=== PATIENT | female | born 1995 | race Caucasian/White ===

== ENCOUNTER 2019-01-31 07:11 | Emergency (ER) | payer OTHER, SELFPAY ==
[2019-01-31 07:12] VITALS: BP 127/81; PULSE 97; RESP 16; TEMP 36.9; O2SAT 98; BMI 30.9
[2019-01-31 07:17] VITALS: BP 127/81; PULSE 97; RESP 16; TEMP 36.9; O2SAT 98
--- NOTE | 2019-01-31 07:26 | RAD_ITS ---
STUDY: X-RAY - LEFT HAND REASON FOR EXAM: Female, 23 years old. History of dog bite in the region of the stomach. TECHNIQUE: 3 view(s) of the hand. COMPARISON: None. FINDINGS: Normal radiocarpal articulation. Normal distal radioulnar joint. Normal visualized carpal bones. Normal carpal articulations Normal carpometacarpal articulation of the thumb. Normal second through fifth carpometacarpal joints. Normal metacarpi. Normal metacarpophalangeal joint of the thumb. Normal interphalangeal joint of the thumb. Normal proximal and distal phalanges of the thumb. Normal metacarpophalangeal joints of the second through fifth fingers. Normal proximal and distal interphalangeal joints of the second through fifth fingers. Normal phalanges of the second through fifth fingers. The soft tissue structures are unremarkable. RAD/Hand Min 3 Views IMPRESSION: Normal x-ray examination of the hand. Electronically Signed: Conrad Warner, at 8:21 EST , Service support ,
[2019-01-31] MEDS: Acetaminophen 500 MG Tablet 1000 MG PO (07:34)
[2019-01-31] MEDS: Ibuprofen 600 MG Tablet PO (07:34)
--- NOTE | 2019-01-31 07:40 | ED.DCSUM_ITS ---
History of Present Illness Chief Complaint: Bite Informant: Patient Occurred: Yesterday Mechanism/Context: - - bite Onset: Yesterday Context: Sudden Onset Timing: Continuous Quality of Pain: Aching, Throbbing Narrative: Patient is a 23-year-old female. She is presenting with a cat bite to her left thumb. She is right-hand dominant. She states she was trying to bring her cat inside and does not like to be held. A bit her twice on the thumb. Since then she had pain and swelling of her thumb. Not taking any for pain prior to arrival. She denies any fever. She denies any other complaints or injuries at this time. Past Medical History - Allergies and Home Meds Allergies/Adverse Reactions: Allergies No Known Allergies Allergy (Verified 01/31/19 07:12) Primary Care Physician: NOT,DEFINED [NON-STAFF] - Smoking Status: Never smoker Review of Systems General: Denies: Fever, Sweats Eyes: Denies: Visual changes - bilaterally, Diplopia ENT: Denies: Rhinorrhea, Sore throat Cardiovascular: Denies: Chest pain, Palpitations Respiratory: Denies: Dyspnea, Cough, Dyspnea on exertion Gastrointestinal: Denies: Abdominal pain, Nausea, Vomiting, Diarrhea Musculoskeletal: Reports: Extremity Pain - left thumb . Denies: Back pain Skin: Reports: Wounds - left thumb . Denies: Rash Neurological: Denies: Headache, Weakness, Numbness Physical Exam Vital Signs/Narrative: Vital Signs Temp Pulse Resp BP Pulse Ox 01/31/19 07:17 98.5 F 97 16 127/81 H 98 01/31/19 07:12 98.5 F 97 16 127/81 H 98 Inital Vital Signs reviewed: Yes Left Finger: - - Edema and mild erythema of the left thumb, distal aspects with multiple puncture wounds on the volar and dorsal aspects consistent with a cat bite. No associated subungual hematoma. The fat pad is soft. There is normal range of motion. General: Well nourished, Well developed Head: Normocephalic, Atraumatic Eyes: Perrl, EOMI ENT: No Trauma, Moist Mucous Membranes Neck: Nontender, Full ROM Cardiovascular: Regular rate, Regular rhythm, No murmurs Respiratory: No distress, Chest nontender Back: Nontender Skin: - - Scattered puncture wounds on left distal thumb consistent with a cat bite. No active bleeding. Associated erythema. No exudate present. Neurological: Alert, Oriented x3, Cranial nerves II-XII grossly intact, Normal Strength, Normal Sensation Psychological: Normal affect, Tearful Diagnostic/Tx/Re-eval Clinical Impression(s) from Imaging Studies Hand X-Ray 01/31/19 07:26 IMPRESSION: Normal x-ray examination of the hand. Electronically Signed: Conrad Warner, at 8:21 EST , Service support , Laboratory Data 01/31/19 07:45 Urine Test Negative - Medical Decision Making Patient is evaluated for cat bite to her left thumb. Occurred last night, about 10 hours ago. It does not look infected however does appear inflamed. She started on Augmentin. X-ray obtained does not show any retained foreign body or free air. She is able to move the joint and I do not suspect an injury intra- articularly. Discussed with orthopedics on-call to arrange follow-up because of the high risk of infection. First dose of antibiotics is given to the emergency room. Patient is given Tylenol and Motrin for pain control. Patient is counseled on signs and symptoms requiring return to the emergency room. Patient verbalizes agreement and understand this plan. Patient discharged home in stable and improved condition. ED Disposition - Plan for ED Patient: Disposition: Home or Assisted Living Diagnosis: Cat bite of left thumb Instructions: Cat Bite Prescriptions: Amox/Clavulanate Tablet [Augmentin Tablet] 875 mg PO Q12H #20 tab Prescription Printed Ibuprofen [Motrin] 600 mg PO Q6H PRN PRN #20 tab PRN Reason: Pain Or Fever Prescription Printed Referrals: Prasanth Méndez DO [STAFF PHYSICIAN] - Zeke Alas MD [NON-STAFF] - Additional Instructions: Please follow-up with Dr. Méndez, orthopedics, later in the week for a wound check. Take all the antibiotics. Continue to ice and elevate your thumb for pain. Return if you have worsening symptoms or start developing signs of infection or fever. You have also been referred to a primary care doctor for follow-up and establish care.
[2019-01-31 08:05] LABS: Internal QC Validated? YES +Cl - CLEAR BKGD; Pregnancy, Urine Negative Negative
[2019-01-31 08:17] VITALS: BP 127/81; PULSE 97; RESP 16; TEMP 36.9; O2SAT 98
[2019-01-31 09:00] VITALS: BP 127/81; PULSE 97; RESP 16; TEMP 36.9; O2SAT 98
[2019-01-31 09:01] VITALS: PULSE 76; RESP 18; O2SAT 99
[2019-01-31] MEDS: Amox/Clavulanate 875 MG Tablet PO (09:07)
== END 2019-01-31 09:13 | disposition home or self-care (01) ==
PROVIDERS: Emergency Provider Emergency Medicine
DX: S61.052A Open bite of left thumb without damage to nail, initial encounter (principal); W55.01XA Bitten by cat, initial encounter; Y93.89 Activity, other specified; Y92.009 Unspecified place in unspecified non-institutional (private) residence as the place of occurrence of the external cause; Y99.8 Other external cause status
CPT/HCPCS: 73130; 81025; 99284

== ENCOUNTER 2019-04-27 12:11 | Emergency (ER) | payer OTHER, SELFPAY ==
[2019-04-27] VITALS (7 sets, daily range): BP systolic 118–141; BP diastolic 65–74; PULSE 70–109; RESP 16–18; TEMP 36.8–37.1; O2SAT 99–100; BMI 28.9
[2019-04-27] MEDS: 0.9% Normal Saline 1,000 ML 999 ML IV ×2 (13:45→14:46)
--- NOTE | 2019-04-27 14:52 | ED.VIS.GEN ---
History of Present Illness Chief Complaint: Nausea/Vomiting/Diarrhea Informant: Patient Narrative: Patient states that on Wednesday morning she woke feeling very poorly. She was diagnosed later in the day as having influenza A. She is given Tamiflu and by later that night after her first dose she was vomiting. She states she has had quite a difficult time keeping any medication or fluids down. She states that she feels dehydrated that her tongue is dry her urine is less and dark. Small amount of diarrhea has occurred. She felt that her breathing was getting worse seems to be slightly better this afternoon. Past Medical History - Allergies and Home Meds Allergies/Adverse Reactions: Allergies No Known Allergies Allergy (Verified 01/31/19 07:12) Primary Care Physician: Care Physician,No Primary [Primary Care Provider] - Smoking Status: Never smoker Review of Systems General: Reports: Chills, Fever, Malaise. Denies: Sweats Eyes: Denies: Visual changes - bilaterally, Diplopia ENT: Reports: Rhinorrhea. Denies: Sore throat Cardiovascular: Denies: Chest pain, Palpitations Respiratory: Reports: Cough. Denies: Dyspnea, Dyspnea on exertion Gastrointestinal: Reports: Nausea, Vomiting, Diarrhea. Denies: Abdominal pain, Melena, Hematochezia Genitourinary: Denies: Dysuria, Hematuria, Frequency Musculoskeletal: Denies: Back pain, Extremity Pain Skin: Denies: Rash, Wounds Neurological: Denies: Headache, Weakness, Numbness Psych: Denies: Depression, Anxiety, Suicidal thoughts, Suicidal ideations Endocrine: Denies: Polyuria, Polydipsia, Heat intolerance, Cold intolerance Hematologic: Denies: Easy bruising, Easy bleeding, Lymphadenopathy Allergy: Denies: Uticaria, Swelling of the mouth, Swelling of the tongue Physical Exam Vital Signs/Narrative: Vital Signs Temp Pulse Resp BP Pulse Ox 04/27/19 14:36 98.3 F 83 16 118/71 100 04/27/19 13:33 98.3 F 70 18 126/65 H 100 04/27/19 13:32 70 18 126/65 H 100 04/27/19 12:12 98.3 F 109 H 17 141/74 H 99 Inital Vital Signs reviewed: Yes General: Well nourished, Well developed, No Acute Distress Head: Normocephalic, Atraumatic Eyes: Perrl, EOMI ENT: No rhinorrhea, Dry mucous membranes Neck: Supple, Nontender Cardiovascular: Regular rate, Regular rhythm, No murmurs Respiratory: No distress, CTA bilaterally, Chest nontender Abdomen: Soft, Nontender, Nondistended, Normal bowel sounds Back: Nontender, Normal Inspection Extremities: Nontender, No edema Skin: Normal color, No rash Neurological: Alert, Oriented x3, Cranial nerves II-XII grossly intact, Normal Strength, Normal Sensation Psychological: Normal affect, Normal Mood Diagnostic/Tx/Re-eval - Medical Decision Making Patient received 2 L of IV fluids. Her vital signs are normal. Lung sounds are clear and equal. I would advise to discontinue Tamiflu as she is otherwise a healthy individual with no significant risk factors. The patient will be given a prescription for Zofran return if worsening or concerns. ED Disposition - Plan for ED Patient: Disposition: Home or Assisted Living Diagnosis: Influenza A, Vomiting, Dehydration Instructions: DEHYDRATION (6y-Adult), INFLUENZA (Adult) Prescriptions: Ondansetron [Zofran Odt] 4 mg PO Q6H PRN PRN #14 tab PRN Reason: Nausea Prescription Printed Referrals: Care Physician,No Primary [Primary Care Provider] -
--- NOTE | 2019-04-27 15:22 | ED.RN ---
SEPSIS SCREEN STOPPED PT'S VITAL SIGNS IMPROVED AND NO S/S SEPSIS/INFECTION.
== END 2019-04-27 15:23 | disposition home or self-care (01) ==
PROVIDERS: Emergency Provider Emergency Medicine
DX: E86.0 Dehydration (principal); J09.X3 Influenza due to identified novel influenza A virus with gastrointestinal manifestations; R11.2 Nausea with vomiting, unspecified
CPT/HCPCS: 96360; 96361; 99283; J7030; A4216

== ENCOUNTER 2020-05-28 13:45 | Inpatient (IN) | payer OTHER, SELFPAY ==
[2019-04-27 12:12] VITALS: BMI 28.9
[2020-05-28] VITALS (21 sets, daily range): BP systolic 121–155; BP diastolic 65–100; PULSE 76–106; TEMP 36.5–37.2; O2SAT 96–97; BMI 44.1
[2020-05-28 12:57] LABS: Hemoglobin 12.6 g/dL (12.0-15.0); Mean Corp Hgb Conc 32.3 g/dL (32-36); Mean Corpuscular Hgb 25.9 pg (27.0-32.0); Mean Corpuscular Volume 80.1 fL (81-99); Mean Platelet Vol. 11.6 fl (6.2-12.0); Platelet Count 220 K/mm3 (150-450); RBC Distribution Width CV 15.7 % (11.6-14.6); RBC Distribution Width SD 44.1 fl (35.1-43.9); Red Blood Count 4.87 M/mm3 (4.2-5.4)
[2020-05-28 13:09] LABS: AST(SGOT) 14 U/L (15-37); Alanine Aminotransfer ALT/SGPT 12 U/L (13-56); Creatinine, Serum 0.62 mg/dL (0.55-1.02); EST Glomerular Filtration Rate 127 mL/min (>60); Est Glom Filt Rate - Afr Amer 154 mL/min (>60); Estimated Creatinine Clearance 116.74 ml/min; Uric Acid 4.5 mg/dL (2.6-6.0)
[2020-05-28 13:12] LABS: Protein:Creat Ratio 12918 mg/g CRE (0-200)
[2020-05-28] MEDS: Lactated Ringers 1,000 ML 50 ML IV (14:20)
[2020-05-28] MEDS: miSOPROStol 25 MCG TABLET VAGINAL ×2 (16:04→20:11)
--- NOTE | 2020-05-28 17:20 | PCM.HP.OB ---
History Date of Admission: 05/28/20 Final KIANA: 06/17/20 Gestational age: 37 Weeks and 1 Days History of this : This is a 24 year-old, G [], P [], at 37 weeks gestational age. Allergies No Known Allergies Allergy (Verified 01/31/19 07:12) Home Medications: Home Medications Ondansetron [Zofran Odt] 4 mg PO Q6H PRN PRN #14 tab 04/27/19 Smoking Status: Former smoker Substance Use Type: Marijuana Number of Fetus(es): 1 NST - FHR Rate Baby A Baseline: 125 Variability:: Moderate Accelerations:: 15 x 15 Decelerations:: None FHR Category:: Category I Uterine Activity:: Quiet History Past Pregnancies: Past Pregnancies Delivery Date Name GA/ Weeks Outcome Route Wt Infant Sex Labor Length Anesthesia Delivery Location Provider FOB Labs: See [facility] H[facility]P Physical Exam Vitals: Vital Signs Temp Pulse BP 97.9 F 93 141/85 H 05/28/20 15:22 05/28/20 16:21 05/28/20 16:21 General: Alert, Oriented x3 Abdomen: Soft, Non Tender, Gravid Neurological: Cranial nerves II-XII grossly intact [employer] RAILROAD: Normal external genitalia Estimated gestational size: Appropriate for gestational size Presentation: Cephalic Cervix Dilation (cm): 0 Station: -3 Effacement (%): 50 Assessment/Plan This is a 24 year-old, , at 37&1 weeks gestational age. Admit to L&D Preeclampsia - BP's mildly elevated and elevated urine protein. Other labs normal. Induction - vaginal cytotec GBS - negative COVID pending Pain - epidural as desired EFW - less than 4500g, patient with adequate pelvis Routine care
[2020-05-28 20:50] LABS: Amphetamine Urine VISTA NEGATIVE (<1000 ng/mL); Barbiturate Urine VISTA NEGATIVE (< 200 ng/mL); Benzodiazepine Urine VISTA NEGATIVE (< 200 ng/mL); Cocaine Urine VISTA NEGATIVE (< 300 ng/mL); Ecstacy Urine VISTA NEGATIVE (< 500 ng/mL); Methadone Urine VISTA NEGATIVE (< 300 ng/mL); PCP Urine VISTA NEGATIVE (< 25 ng/mL); THC Urine VISTA NEGATIVE (< 50 ng/mL); Vista UDS pH Range 7
[2020-05-29] VITALS (52 sets, daily range): BP systolic 105–149; BP diastolic 61–101; PULSE 76–111; RESP 13–18; TEMP 36.4–37.7; O2SAT 91–99
[2020-05-29] MEDS: miSOPROStol 25 MCG TABLET VAGINAL (00:14)
[2020-05-29] MEDS: 0.9% Normal Saline Single 100 ML IV.SOLN. INTRA-UTER (03:03)
--- NOTE | 2020-05-29 03:10 | PCM.PN.BLA ---
Progress Note S: Patient denies complaints O: Cvx - /-3 fhts - 130 with mod variability, accels tocos - Irregular A&P: Intracervical cervantes placed Start pitocin after cytotec time complete PreE - BP's normal to mildly elevated STROKE Vital Signs/Narrative: Vital Signs Temp Pulse BP Pulse Ox 05/29/20 02:07 76 133/76 H 96 05/29/20 02:06 97.9 F 05/29/20 01:13 97.7 F L 77 117/87 H 96 05/29/20 00:20 98.1 F 80 139/68 H 96 05/28/20 23:34 98.1 F 86 122/68 H 97
[2020-05-29] MEDS: Oxytocin 30 units/NS 500 ml 30 UNITS/500 ML IV.SOLN IV (05:42)
[2020-05-29] MEDS: Lactated Ringers 1,000 ML 50 ML IV (07:45)
[2020-05-29] MEDS: Lactated Ringers 500 ML 999 ML IV ×2 (07:58→13:10)
[2020-05-29] MEDS: fentaNYL-bupivacaine (epidural) 100 ML BAG EPIDURAL (08:38)
--- NOTE | 2020-05-29 11:59 | PCM.PN.BLA ---
Progress Note Cvx 4/60/-2, head well applied. Epidural for pain control. AROM performed for clear fluid. Category 1 tracing. STROKE Vital Signs/Narrative: Vital Signs Temp Pulse BP Pulse Ox 05/29/20 11:50 98.1 F 90 116/71 05/29/20 10:52 81 116/61 05/29/20 09:56 92 120/69 05/29/20 09:21 93 122/74 H 05/29/20 09:00 101 H 105/67 05/29/20 08:57 104 H 98 05/29/20 08:55 105 H 108/66 05/29/20 08:52 98.2 F 100 98 05/29/20 08:50 96 110/63 05/29/20 08:47 97 98 05/29/20 08:44 92 127/64 H 05/29/20 08:42 96 97 05/29/20 08:40 98.6 F 94 127/68 H 05/29/20 08:37 87 97 05/29/20 08:34 94 143/90 H 05/29/20 08:32 97 98 05/29/20 08:28 103 H 140/99 H 05/29/20 08:27 103 H 98 05/29/20 08:22 102 H 97 05/29/20 08:10 90 146/80 H
[2020-05-29] MEDS: Sodium Citrate/Citric Acid 30 ML UDC PO (14:32)
[2020-05-29] MEDS: Cefazolin 2 GM in 0.9% Normal Saline 100 ML IV (14:33)
--- NOTE | 2020-05-29 14:33 | PCM.PN.BLA ---
Progress Note Called for category 2 tracing. FHT with minimal variability and recurrent late decelerations with pit gtt. Resuscitative measures started per RN and variability now moderate with pitocin off. Given recurrent late decelerations with pitocin and regular ctx's, and with patient being remote from delivery, a section was discussed. Cvx 4.5/60/-2. Discussed r/b/a to a section and consent obtained. The patient desires to proceed with a section. STROKE Vital Signs/Narrative: Vital Signs Temp Pulse BP Pulse Ox 05/29/20 13:01 88 99 05/29/20 12:56 86 99 05/29/20 12:54 88 123/80 H 05/29/20 11:50 98.1 F 90 116/71 05/29/20 10:52 81 116/61
--- NOTE | 2020-05-29 16:02 | PCM.OPRPT ---
Problem List (1) 37 weeks gestation of Status: Acute (2) Preeclampsia Status: Acute (3) Primiparous Status: Acute (4) intolerance to labor, delivered, current hospitalization Status: Acute (5) Delivery by section Status: Acute (6) Nuchal cord Status: Acute Report of Operation Date of Procedure: 05/29/20 Pre-Operative Diagnosis: 37 week gestation, preeclampsia without severe features, primiparous patient, intolerance to labor Post-Operative Diagnosis: As above Surgery/Procedure Performed:: PLTCS via pfannenstiel incision Description of Surgical Findings:: Indications: Patient was induced at 37 weeks gestation for preeclampsia without severe features. She progressed to 4.5 cm dilated. At that time the heart rate tracing showed minimal variability with late decelerations noted. Baby was palpated to be large for gestational age. The baby was not engaged in the pelvis. The patient was removed from delivery. Given this and intolerance to labor a section was recommended. VMI that was 8 plus lbs. Nuchal cord x 1. Clear fluid. Normal appearing placenta. Normal appearing uterus, bilateral tubes, bilateral ovaries. digital research analyst: Keith Salomon assisted with the entire surgery. He assisted with prepping and draping the patient, delivery of the baby, and closure. Type of Anesthesia:: Epidural Special Medications: None Specimen's removed: Placenta Drains: Cottrell Estimated Blood Loss (mL): 400 Fluids Replaced: 1000 Description of Procedure: Patient was taken to the operating room where epidural anesthesia was found to be adequate. She was prepped and draped in the dorsal position with a leftward tilt. A Pfannenstiel skin incision was made with a scalpel and this was carried down to the underlying layer of fascia. The fascia was incised in the midline. The fascia was extended laterally using Jo scissors. The fascia was dissected off the rectus muscles using a combination of sharp and blunt dissection. The rectus muscles were in the midline. The peritoneum was entered bluntly with good visualization visualization of the bladder. The incision was extended bluntly. A low transverse incision was made on the uterus. The head of the infant was brought in a flexed position to the hysterotomy. The head was delivered followed by the shoulders and body of the infant without any force or delay. A viable male infant was delivered atraumatically. The cord was clamped and cut after a slight delay. The was handed off to nursery staff. The placenta was removed with manual extraction. Uterus was exteriorized. The uterus was cleared of all clot and debris. Uterus was closed in a running locked fashion with Vicryl. Several additional [id number] sutures were placed for hemostasis. Hysterotomy was hemostatic. A small subserosal uterine hematoma was noted at the site of the hysterotomy, and this was stable throughout the case. The hematoma was about 3 x 1 cm in size. The uterus was placed back into the abdomen. The hysterotomy was again noted to be hemostatic and the hematoma was stable in size. The peritoneum was closed with Vicryl in a running fashion. The fascia was closed with Vicryl in a running fashion. The subcutaneous space was irrigated and made hemostatic with Bovie cautery. Subcutaneous space was reapproximated with Vicryl. Skin was closed with Monocryl in subcuticular fashion. Steri-Strips and dressing were placed. Instrument, sponge, needle counts were correct. The patient was taken recovery room in stable condition. Grafts/Implants Used: None - Complications None - Admit VTE Documentation VTE Present on Admission: No VTE Mechan Device Prophylaxis: [facility] VTE Pharm Prophylaxis ordered?: Yes Delivery Classification: NICANOR Type of Anesthesia:: Epidural Indications for : - - intolerance to labor Amniotic Fluid Description: Clear Drain: Cottrell to straight drain Cord Entanglement: Around neck x 1, loose Cord Vessel Description: 3 Vessels Gender: Male (1 minute): 9 (5 minute): 9 Delayed cord clamping: Yes Antibiotic Given: Ancef 2 grams IV x1, Zithromax 500 mg/5 mL X1 Pt instructed on risks of surgery: Bleeding, Infection, Injury to surrounding structure(s) including bowel and bladder Complications: None
[2020-05-29] MEDS: Ketorolac 30 MG/ML Syringe IV ×2 (16:23→22:21)
[2020-05-29] MEDS: Oxytocin 30 units/NS 500 ml 30 UNITS/500 ML IV.SOLN 167 UNITS IV (16:40)
[2020-05-29] MEDS: Carboprost Tromethamine 250 MCG/ML Ampul IM ×2 (17:13→18:15)
[2020-05-29] MEDS: Lactated Ringers 1,000 ML 100 ML IV (17:48)
[2020-05-29] MEDS: Oxytocin 30 units/NS 500 ml 30 UNITS/500 ML IV.SOLN 500 UNITS IV (18:04)
[2020-05-29] MEDS: miSOPROStol 200 MCG Tablet 1000 MCG RC (18:04)
[2020-05-29 18:19] LABS: Hematocrit 35.4 % (37-47); Hemoglobin 11.4 g/dL (12.0-15.0); Mean Corp Hgb Conc 32.2 g/dL (32-36); Mean Corpuscular Hgb 25.6 pg (27.0-32.0); Mean Corpuscular Volume 79.4 fL (81-99); Mean Platelet Vol. 11.2 fl (6.2-12.0); Platelet Count 201 K/mm3 (150-450); RBC Distribution Width CV 15.8 % (11.6-14.6); RBC Distribution Width SD 43.9 fl (35.1-43.9); Red Blood Count 4.46 M/mm3 (4.2-5.4); White Blood Count 17.4 K/mm3 (4.4-11.0)
[2020-05-29] MEDS: Acetaminophen 500 MG Tablet 1000 MG PO (18:23)
--- NOTE | 2020-05-29 18:51 | PCM.PN.BLA ---
Progress Note Called to evaluate patient's bleeding. At bedside. Patient appears pale. She denies any symptoms of anemia. Uterus is boggy. Uterus was explored x2 and cleared of clot. Total EBL with hemorrhage and about 1300 cc. Will bolus the Pitocin. 2 doses of Hemabate given. Rectal Cytotec placed. BP elevated so no Methergine given. CBC drawn. Will reevaluate bleeding. STROKE Vital Signs/Narrative: Vital Signs Temp Pulse Resp BP Pulse Ox 05/29/20 18:09 95 16 94 05/29/20 17:52 97.7 F L 83 17 132/78 H 94 05/29/20 17:41 98.6 F 85 16 146/83 H 94 05/29/20 17:25 98.4 F 86 16 134/88 H 96 05/29/20 17:10 97.9 F 88 18 135/79 H 94 05/29/20 16:55 97.9 F 111 H 17 143/92 H 95 05/29/20 16:40 98.0 F 83 14 146/81 H 94 05/29/20 16:25 97.9 F 89 13 131/87 H 95 05/29/20 16:09 97.8 F 90 15 133/91 H 94 05/29/20 15:55 97.9 F 89 16 125/86 H 95
--- NOTE | 2020-05-29 18:58 | NURSING ---
Addendum entered by Susanne Palma 05/29/20 19:45: 1000 mcg of cytotec Original Note: Called placed to Dr. Kumari at 1740 to come to unit to assess patient by special services director. Dr. Kumari in room 1755. Total EBL 1010ml, including 400ml from surgery. Fundus firm with massage, large clots expelled. Patient vitals stable. Physician manually removed additional 280 ml of clots from uterus. Ordered 100 mcg cytotec rectally and pitocin at 500 ml/hr. Juliane in room to assist. Patient continuing to trickle after cytotec. Robin special services director in room. Physician ordered 250mcg hemabate IM Fundus firm at umblicius with small bleeding after administration. Physician states to continue to monitor and update physician. Physician to stay on unit at this time. This RN assessed bleeding at 1840 for 110ml out, total of 1400 (including surgery). Notified physician, stated to continue to monitor and she will be in to reassess patient throughout evening. (See MAR for all medication times)
[2020-05-29] MEDS: 0.9% Saline Lock 10 ML Syringe IV (22:21)
[2020-05-30] VITALS (13 sets, daily range): BP systolic 112–125; BP diastolic 64–76; PULSE 78–109; RESP 14–18; TEMP 36.5–36.6; O2SAT 95–98
[2020-05-30] MEDS: Acetaminophen 500 MG Tablet 1000 MG PO ×4 (00:24→18:55)
[2020-05-30] MEDS: 0.9% Saline Lock 10 ML Syringe IV ×2 (03:13→04:30)
[2020-05-30] MEDS: Enoxaparin 40 MG/0.4 ML Syringe SC (04:30)
[2020-05-30] MEDS: Ketorolac 30 MG/ML Syringe IV ×2 (04:30→11:02)
[2020-05-30 05:03] LABS: Hematocrit 29.6 % (37-47); Hemoglobin 9.4 g/dL (12.0-15.0); Mean Corp Hgb Conc 31.8 g/dL (32-36); Mean Corpuscular Hgb 25.8 pg (27.0-32.0); Mean Corpuscular Volume 81.1 fL (81-99); Mean Platelet Vol. 11.3 fl (6.2-12.0); Platelet Count 212 K/mm3 (150-450); RBC Distribution Width CV 15.9 % (11.6-14.6); RBC Distribution Width SD 45.9 fl (35.1-43.9); Red Blood Count 3.65 M/mm3 (4.2-5.4); White Blood Count 18.8 K/mm3 (4.4-11.0)
[2020-05-30 05:20] LABS: ALB/GLOB Ratio 0.6 RATIO (0.9-2.4); AST(SGOT) 18 U/L (15-37); Alanine Aminotransfer ALT/SGPT 12 U/L (13-56); Albumin, Serum 1.8 g/dL (3.2-5.0); Alkaline Phosphatase 174 U/L (45-117); Anion Gap 5 (5-15); BUN 12 mg/dL (7-18); BUN/Creat Ratio 19.4 RATIO (10-20); Calcium,Total 8.2 mg/dL (8.5-10.1); Chloride 102 mmol/L (98-107); Creatinine, Serum 0.62 mg/dL (0.55-1.02); EST Glomerular Filtration Rate 126 mL/min (>60); Est Glom Filt Rate - Afr Amer 152 mL/min (>60); Estimated Creatinine Clearance 116.74 ml/min; Globulin 3.2 g/dL (2.2-4.2); Glucose 104 mg/dL (74-106); Potassium 4.4 mmol/L (3.5-5.1); Sodium Level 133 mmol/L (136-145)
--- NOTE | 2020-05-30 08:33 | PN.OBGYN_ITS ---
Patient Problems: Active and Suspected Problems (Last Updated 05/28/20 @ 17:[address] Carlos Enrique Martinez MD) 37 weeks gestation of (Acute) Preeclampsia (Acute) Primiparous (Acute) intolerance to labor, delivered, current hospitalization (Acute) Delivery by section (Acute) Nuchal cord (Acute) Subjective: Patient seen at bedside. Currently . Feeling tired and sore. Denies any headache, vision changes, sob, cp or dizziness. Pain controlled at this time. Objective: BP have been within normal ranges Dressing dry and intact HGB - admission was 12.6, today 9.4 - Physical Exam Vitals/I&O's: Vital Signs Temp Pulse Resp BP Pulse Ox 98 F 94 16 122/71 H 96 05/30/20 04:36 05/30/20 06:30 05/30/20 06:30 05/30/20 04:36 05/30/20 06:30 Oxygen Delivery Method Room Air Weight: 249 lb 9.012 oz Body Mass Index (BMI) 44.1 Intake and Output for Last 24 Hours 05/28/20 05/29/20 05/30/20 23:59 23:59 23:59 Intake Total 4543.77 / 4543.77 941.67 / 941.67 Output Total 3000 / 3000 1000 / 1000 Balance 1543.77 / 1543.77 -58.33 / -58.33 General: Alert HEENT: Atraumatic Oral: Moist Mucosa Neck: Supple Lungs: Clear to auscultation, Normal air movement Cardiovascular: Regular rate Abdomen: Soft, Non Tender Extremities: Capillary Refill Less than 3 Seconds, No Calf Tenderness, Edema Musculoskeletal: No Tenderness to Palpation of Joints or Extremities Neurological: Cranial nerves II-XII grossly intact Psych/Mental Status: Normal Affect, Appropriate Microbiology Past 72 Hours 05/28/20 14:35 Mucosa - Nose SARS-CoV-2 Antigen (Rapid) - Final Laboratory Results 05/29/20 18:05: WBC 17.4 H, RBC 4.46, Hgb 11.4 L, Hct 35.4 L, MCV 79.4 L, MCH 25.6 L, MCHC 32.2, RDW Std Deviation 43.9, RDW Coeff of Skyler 15.8 H, Plt Count 201, MPV 11.2 05/30/20 04:40: WBC 18.8 H, RBC 3.65 L, Hgb 9.4 L, Hct 29.6 L, MCV 81.1, MCH 25.8 L, MCHC 31.8 L, RDW Std Deviation 45.9 H, RDW Coeff of Skyler 15.9 H, Plt Count 212, MPV 11.3 05/30/20 04:40: Sodium 133 L, Potassium 4.4, Chloride 102, Carbon Dioxide 26.0, Anion Gap 5, BUN 12, Creatinine 0.62, Estim Creat Clear Calc 116.74, Est GFR (MDRD) Af Amer 152, Est GFR (MDRD) Non-Af 126, BUN/Creatinine Ratio 19.4, G lucose 104, Calcium 8.2 L, Total Bilirubin 0.20, AST 18, ALT 12 L, Alkaline Phosphatase 174 H, Total Protein 5.0 L, Albumin 1.8 L, Globulin 3.2, Albumin/Globulin Ratio 0.6 L Current Medications Acetaminophen (Acetaminophen 500 Mg Tablet) 1,000 mg PO Q6 [facility] Last Admin: 05/30/20 06:26 Dose: 1,000 mg Documented by: Bisacodyl (Bisacodyl 10 Mg Suppository) 10 mg RC UD PRN PRN Reason: If no BM Diphenhydramine HCl (Diphenhydramine 25 Mg Capsule) 25 mg PO Q6H PRN PRN PRN Reason: ITCHING Stop: 05/30/20 16:08 Enoxaparin Sodium (Enoxaparin 40 Mg/0.4 Ml Syringe) 40 mg SC DAILY [facility] Last Admin: 05/30/20 04:30 Dose: 40 mg Documented by: Hydrocortisone (Hydrocortisone 2.5% Crm) 1 applic TOPICAL TID PRN PRN; Protocol PRN Reason: Discomfort Lactated Ringer's () 1,000 mls @ 100 mls/hr IV .Q10H [facility] Last Admin: 05/30/20 03:50 Dose: Not Given Documented by: Ibuprofen (Ibuprofen 600 Mg Tablet) 600 mg PO Q6H [facility] Ketorolac Tromethamine (Ketorolac 30 Mg/Ml Syringe) 30 mg IV Q6H [facility] Stop: 05/30/20 10:01 Last Admin: 05/30/20 04:30 Dose: 30 mg Documented by: Methylergonovine Maleate (Methylergonovine 0.2 Mg/Ml Ampul) 0.2 mg IM X1 PRN PRN Reason: Uterine Atony Nalbuphine HCl (Nalbuphine 10 Mg/Ml Ampul) 5 mg IV Q3H PRN PRN PRN Reason: ITCHING Stop: 05/30/20 16:08 Naloxone HCl (Naloxone 0.4 Mg/Ml Syringe) 0.02 mg IV Q1M PRN PRN Reason: RR <10 and pt unresponsive Ondansetron HCl (Ondansetron 4 Mg/2 Ml Vial) 4 mg IV Q4H PRN PRN PRN Reason: Nausea Oxycodone HCl (Oxycodone 5 Mg Tablet) 5 - 10 mg PO Q4H PRN PRN PRN Reason: Pain Score 4-10 Prochlorperazine Edisylate (Prochlorperazine 10 Mg/2 Ml Vial) 10 mg IV Q6H PRN PRN PRN Reason: NAUSEA Senna/Docusate Sodium (Senna/Docusate Sodium 1 Tablet) 0 tablet PO DAILY [facility] Simethicone (Simethicone 80 Mg Tablet) 80 mg PO PCHS PRN PRN Reason: Indigestion/stomach pain Sodium Chloride (0.9% Saline Lock 10 Ml Syringe) 5 - 15 ml IV UD PRN PRN Reason: SALINE FLUSH Last Admin: 05/30/20 04:30 Dose: 10 ml Documented by: Medical Necessity - Tobacco Use Smoking Status: Former smoker Assessment/Plan All Active Problems (Last Updated 05/28/20 @ 17:[address] Carlos Enrique Martinez MD) 37 weeks gestation of (Acute) Preeclampsia (Acute) Primiparous (Acute) intolerance to labor, delivered, current hospitalization (Acute) Delivery by section (Acute) Nuchal cord (Acute) POD #1 Primary C/S- Pain controlled Routine care Breast feeding support Ambulate today Anticipate discharge home tomorrow
[2020-05-30] MEDS: Senna/Docusate Sodium 1 Tablet PO (11:02)
[2020-05-30] MEDS: Ibuprofen 600 MG Tablet PO (17:36)
[2020-05-31 01:41] VITALS: BP 132/81; PULSE 98; RESP 18; TEMP 36.5
[2020-05-31] MEDS: Ibuprofen 600 MG Tablet PO ×2 (01:45→10:29)
[2020-05-31] MEDS: Acetaminophen 500 MG Tablet 1000 MG PO ×2 (01:45→08:34)
[2020-05-31] MEDS: oxyCODONE 5 MG Tablet PO ×3 (03:38→12:36)
[2020-05-31 08:37] VITALS: BP 136/89; PULSE 104; RESP 16; TEMP 36.8
--- NOTE | 2020-05-31 10:04 | PN.OBGYN_ITS ---
Patient Problems: Active and Suspected Problems (Last Updated 05/28/20 @ 17:[address] Carlos Enrique Martinez MD) 37 weeks gestation of (Acute) Preeclampsia (Acute) Primiparous (Acute) intolerance to labor, delivered, current hospitalization (Acute) Delivery by section (Acute) Nuchal cord (Acute) Subjective: Doing well per patient and nursing staff. Ambulating and taking p.o. without difficulty. Voiding and passing flatus. Had bowel movement. Increased pain, awaiting oxycodone and Tylenol. Has heating pad. Breast-feeding without difficulty. Denies any headache, visual changes, chest pain, shortness of breath, increased vaginal bleeding, leg pain. Normal lochia. Discharge home today. - Physical Exam Vitals/I&O's: Vital Signs Temp Pulse Resp BP Pulse Ox 98.3 F 104 H 16 136/89 H 97 05/31/20 08:37 05/31/20 08:37 05/31/20 08:37 05/31/20 08:37 05/30/20 17:00 Oxygen Delivery Method Room Air Weight: 249 lb 9.012 oz Body Mass Index (BMI) 44.1 Intake and Output for Last 24 Hours 05/29/20 05/30/20 05/31/20 23:59 23:59 23:59 Intake Total 4543.77 / 4543.77 941.67 / 941.67 Output Total 3000 / 3000 1900 / 1900 Balance 1543.77 / 1543.77 -958.33 / -958.33 General: Alert, Oriented x3, Cooperative HEENT: Atraumatic, Normocephalic Neck: Trachea Midline Lungs: Clear to auscultation, Normal air movement, No rhonchi, No wheeze Cardiovascular: Regular rate, Regular Rhythm, No murmurs Abdomen: Bowel Sounds Present, Soft - Fundus firm 2 below U. Dressing with a few old blood spots, no increase in size. Dressing dry and intact. Extremities: Edema - Bilateral nonpitting edema, mild. Homans negative. Psych/Mental Status: Normal Affect, Appropriate Microbiology Past 72 Hours 05/28/20 14:35 Mucosa - Nose SARS-CoV-2 Antigen (Rapid) - Final Current Medications Acetaminophen (Acetaminophen 500 Mg Tablet) 1,000 mg PO Q6 [facility] Last Admin: 05/31/20 08:34 Dose: 1,000 mg Documented by: Bisacodyl (Bisacodyl 10 Mg Suppository) 10 mg RC UD PRN PRN Reason: If no BM Enoxaparin Sodium (Enoxaparin 40 Mg/0.4 Ml Syringe) 40 mg SC DAILY [facility] Last Admin: 05/30/20 04:30 Dose: 40 mg Documented by: Hydrocortisone (Hydrocortisone 2.5% Crm) 1 applic TOPICAL TID PRN PRN; Protocol PRN Reason: Discomfort Ibuprofen (Ibuprofen 600 Mg Tablet) 600 mg PO Q6H [facility] Methylergonovine Maleate (Methylergonovine 0.2 Mg/Ml Ampul) 0.2 mg IM X1 PRN PRN Reason: Uterine Atony Naloxone HCl (Naloxone 0.4 Mg/Ml Syringe) 0.02 mg IV Q1M PRN PRN Reason: RR <10 and pt unresponsive Ondansetron HCl (Ondansetron 4 Mg/2 Ml Vial) 4 mg IV Q4H PRN PRN PRN Reason: Nausea Oxycodone HCl (Oxycodone 5 Mg Tablet) 5 - 10 mg PO Q4H PRN PRN PRN Reason: Pain Score 4-10 Last Admin: 05/31/20 08:34 Dose: 5 mg Documented by: Prochlorperazine Edisylate (Prochlorperazine 10 Mg/2 Ml Vial) 10 mg IV Q6H PRN PRN PRN Reason: NAUSEA Senna/Docusate Sodium (Senna/Docusate Sodium 1 Tablet) 0 tablet PO DAILY [facility] Last Admin: 05/30/20 11:02 Dose: 1 tablet Documented by: Simethicone (Simethicone 80 Mg Tablet) 80 mg PO PCHS PRN PRN Reason: Indigestion/stomach pain Sodium Chloride (0.9% Saline Lock 10 Ml Syringe) 5 - 15 ml IV UD PRN PRN Reason: SALINE FLUSH Last Admin: 05/30/20 04:30 Dose: 10 ml Documented by: Medical Necessity - Tobacco Use Smoking Status: Former smoker Assessment/Plan All Active Problems (Last Updated 05/28/20 @ 17:[address] Carlos Enrique Martinez MD) 37 weeks gestation of (Acute) Preeclampsia (Acute) Primiparous (Acute) intolerance to labor, delivered, current hospitalization (Acute) Delivery by section (Acute) Nuchal cord (Acute) A:POD #2 Primary Low Transverse Section Acute Blood Loss anemia . P: Routine postoperative and instructions reviewed. Breast-feeding support by staff. Option for oxycodone, pain management Acute blood loss anemia, iron supplement prescription to pharmacy Follow-up in 3 days for pressure and incision check. Follow-up in 6 weeks for visit Blood pressure normal at this time, viewed preeclampsia symptoms and when to call. Discharge home today
[2020-05-31] MEDS: Senna/Docusate Sodium 1 Tablet PO (10:28)
[2020-05-31] MEDS: Enoxaparin 40 MG/0.4 ML Syringe SC (10:29)
--- NOTE | 2020-05-31 10:42 | PCM.DCCSEC ---
Discharge Diet: No Restrictions Discharge Activity: May Not Drive - for 2 weeks or while taking narcotic pain meds., May Shower, May Take a Tub Bath - in 7 days. May resume sexual activity in: 4-6 weeks Weight Bearing Status: Full weight bearing Lifting Restrictions: 20 pounds Additional Activity Instructions:: Nothing in the vagina for 4-6 weeks. You may return to work/school in 6 weeks. Call your doctor if your incision/area has: Continuous Slow Oozing, Sudden Increased Bleeding, Increased Pain/ Swelling, Increased Redness, Foul Smelling Discharge Call your doctor if you observe: Fever of 101 or Higher Suture Line Care: Avoid Pulling/Pushing, Avoid Pinching/Bending Additional Instructions: If you experience any of the following, contact your healthcare provider. Bleeding that soaks a pad every hour for 2 hours Fever 100.4 or higher Unrelieved incision or abdominal pain Swelling, redness, discharge or bleeding from your incision or episiotomy site Your incision begins to separate Problems urinating (including inability to urinate or burning while urinating). Visual changes Severe headache Flu-like symptoms Pain or redness in one of both of your breasts Pain, warmth, tenderness or swelling in your legs, especially the calf area Frequent nausea and vomiting Symptoms of depression or anxiety If you experience any of the following, call 911 or go to the nearest Emergency Room. Chest pain Problems breathing Seizure activity Partial or complete paralysis of a body part, slurred speech, weakness or drooping of the face, or a sudden inability to walk or hold your balance Allergies/Adverse Reactions: Allergies No Known Allergies Allergy (Verified 01/31/19 07:12) Medications to take at Discharge Ferrous Sulfate 325 mg PO BID 30 Days #60 tablet 05/31/20 Oxycodone [Oxyir] 5 - 10 mg PO Q6H PRN 7 Days #20 tablet 05/31/20 The following prescriptions were given: Ferrous Sulfate 325 mg PO BID 30 Days #60 tablet Transmission Status: Pending to [facility] Oxycodone [Oxyir] 5 - 10 mg PO Q6H PRN 7 Days #20 tablet PRN Reason: Pain Score 4-10 Transmission Status: Pending to [facility] Follow-Up: Call to make an appointment with your doctor for an incision check in 3-5 days for Blood pressure check and incision check.You will also need a 6 week post- follow up appointment. Test results from this visit will be discussed in further detail at your follow-up appointment, if applicable. Please Follow Up With: Laura Kumari DO Primary Care Physician: Care Physician,No Primary [Primary Care Provider] -
--- NOTE | 2020-05-31 10:43 | DS.PCM_ITS ---
Discharge Date and Diagnosis - Problem List Patient Problems: Active and Suspected Problems (Last Updated 05/28/20 @ 17:[address] Carlos Enrique Martinez MD) 37 weeks gestation of (Acute) Preeclampsia (Acute) Primiparous (Acute) intolerance to labor, delivered, current hospitalization (Acute) Delivery by section (Acute) Nuchal cord (Acute) Date of Admission: 05/28/20 - Primary Discharge Diagnosis Acute Problems: Active Problems (Last Updated 05/28/20 @ 17:[address] Carlos Enrique Martinez MD) 37 weeks gestation of (Acute) Preeclampsia (Acute) Primiparous (Acute) intolerance to labor, delivered, current hospitalization (Acute) Delivery by section (Acute) Nuchal cord (Acute) Hospital Course and Treatment Summary of Care Provided: The patient is a 24 year old F []. Presented on 05/28/20 from office visit with signs of preeclampsia and elevated blood pressure in mild range. Urine P/C ratio elevated. Induction of labor with cytotec. Progressed to Cervix 4.5/60/-2, Given recurrent late decelerations with pitocin and regular ctx's, and with patient being remote from delivery, a section completed on 05/29/20. Uncomplicated postoperative course, discharge home on 05/31/20. Patient Problems: Active and Suspected Problems (Last Updated 05/28/20 @ 17:[address] Carlos Enrique Martinez MD) 37 weeks gestation of (Acute) Preeclampsia (Acute) Primiparous (Acute) intolerance to labor, delivered, current hospitalization (Acute) Delivery by section (Acute) Nuchal cord (Acute) - Physical Exam Vitals/I&O's: Vital Signs Temp Pulse Resp BP Pulse Ox 98.3 F 104 H 16 136/89 H 97 05/31/20 08:37 05/31/20 08:37 05/31/20 08:37 05/31/20 08:37 05/30/20 17:00 Oxygen Delivery Method Room Air Weight: 249 lb 9.012 oz Body Mass Index (BMI) 44.1 Intake and Output for Last 24 Hours 05/29/20 05/30/20 05/31/20 23:59 23:59 23:59 Intake Total 4543.77 / 4543.77 941.67 / 941.67 Output Total 3000 / 3000 1900 / 1900 Balance 1543.77 / 1543.77 -958.33 / -958.33 Microbiology Past 72 Hours 05/28/20 14:35 Mucosa - Nose SARS-CoV-2 Antigen (Rapid) - Final Current Medications Acetaminophen (Acetaminophen 500 Mg Tablet) 1,000 mg PO Q6 [facility] Last Admin: 05/31/20 08:34 Dose: 1,000 mg Documented by: Bisacodyl (Bisacodyl 10 Mg Suppository) 10 mg RC UD PRN PRN Reason: If no BM Enoxaparin Sodium (Enoxaparin 40 Mg/0.4 Ml Syringe) 40 mg SC DAILY [facility] Last Admin: 05/31/20 10:29 Dose: 40 mg Documented by: Hydrocortisone (Hydrocortisone 2.5% Crm) 1 applic TOPICAL TID PRN PRN; Protocol PRN Reason: Discomfort Ibuprofen (Ibuprofen 600 Mg Tablet) 600 mg PO Q6H [facility] Last Admin: 05/31/20 10:29 Dose: 600 mg Documented by: Methylergonovine Maleate (Methylergonovine 0.2 Mg/Ml Ampul) 0.2 mg IM X1 PRN PRN Reason: Uterine Atony Naloxone HCl (Naloxone 0.4 Mg/Ml Syringe) 0.02 mg IV Q1M PRN PRN Reason: RR <10 and pt unresponsive Ondansetron HCl (Ondansetron 4 Mg/2 Ml Vial) 4 mg IV Q4H PRN PRN PRN Reason: Nausea Oxycodone HCl (Oxycodone 5 Mg Tablet) 5 - 10 mg PO Q4H PRN PRN PRN Reason: Pain Score 4-10 Last Admin: 05/31/20 08:34 Dose: 5 mg Documented by: Prochlorperazine Edisylate (Prochlorperazine 10 Mg/2 Ml Vial) 10 mg IV Q6H PRN PRN PRN Reason: NAUSEA Senna/Docusate Sodium (Senna/Docusate Sodium 1 Tablet) 0 tablet PO DAILY [facility] Last Admin: 05/31/20 10:28 Dose: 1 tablet Documented by: Simethicone (Simethicone 80 Mg Tablet) 80 mg PO PCHS PRN PRN Reason: Indigestion/stomach pain Sodium Chloride (0.9% Saline Lock 10 Ml Syringe) 5 - 15 ml IV UD PRN PRN Reason: SALINE FLUSH Last Admin: 05/30/20 04:30 Dose: 10 ml Documented by: Discharge Diet: No Restrictions Discharge Activity: May Not Drive - for 2 weeks or while taking narcotic pain meds., May Shower, May Take a Tub Bath - in 7 days. May resume sexual activity in: 4-6 weeks Weight Bearing Status: Full weight bearing Additional Activity Instructions:: Nothing in the vagina for 4-6 weeks. You may return to work/school in 6 weeks. Call your doctor if your incision/area has: Continuous Slow Oozing, Sudden Increased Bleeding, Increased Pain/ Swelling, Increased Redness, Foul Smelling Discharge Call your doctor if you observe: Fever of 101 or Higher Suture Line Care: Avoid Pulling/Pushing, Avoid Pinching/Bending Home Medications: Medications to take at Discharge Ferrous Sulfate 325 mg PO BID 30 Days #60 tablet 05/31/20 Oxycodone [Oxyir] 5 - 10 mg PO Q6H PRN 7 Days #20 tablet 05/31/20 Following Prescriptions Were Given to Patient: Ferrous Sulfate 325 mg PO BID 30 Days #60 tablet Transmission Status: Received by [facility] Oxycodone [Oxyir] 5 - 10 mg PO Q6H PRN 7 Days #20 tablet PRN Reason: Pain Score 4-10 Transmission Status: Pending to [facility] Primary Care Physician: Care Physician,No Primary [Primary Care Provider] - Please Follow Up With: Laura Kumari DO Medical Necessity - Tobacco Use Smoking Status: Former smoker Meaningful Use Info Meaningful Use Diagnoses (Choose all that apply): None applicable
[2020-05-31 12:37] VITALS: BP 124/83; PULSE 101; RESP 16; TEMP 36.2
--- NOTE | 2020-05-31 13:45 | CASEMGMT ---
Social Work Assessment Labor and Delivery Unit Patient Address: [facility] [address] [id number] Phone number: [phone] Date of Referral: 05/31/2020 Time of Referral: 829 Referred By: Verbal notification by nursing staff Date of Intervention: 05/31/2020 Time of Intervention: 1345 Reason for Referral: Maternal history of depression, anxiety, and early marijuana use. History obtained from: Medical records and mother of baby (MOB) Ankita Foster; father of baby (FOB) Kendrick Gonzales also present for part of conversation. Household composition: MOB and FOB live together in a home. No reported concerns with situation. Patient's parent/guardian status: MOB is a 24-year-old single female, involved with the FOB for the last 9 years. During private conversation with the MOB, the MOB denies any form of domestic violence or safety concerns in this relationship. baby is the first child for both. baby is Edison Gonzales, born 05/29/2020. Medical History: MEY is 1, para 0 now 1 after delivering Edison. care started in the first trimester at 10 weeks gestation. MEY did develop preeclampsia. Delivery occurred at 37 weeks gestation. Apgars 9 and 9 at 1 and 5 minutes of life respectively. weight 8 pounds 2 ounces. Educational Status: MEY graduated from high school. Reports to be able to read, write, and understand what is read. 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 [employer] also works for the family business. No reported concerns about finances at this time. Infant Supplies: MOB and FOB report to have needed supplies including safe sleep spaces and car seat. MOB is breast-feeding the infant. Childcare/Caregiver(s): MOB and FOB will be the primary caregivers. Transportation: No issues. Programs/Agencies Involved: No current agency involvement. MEY agrees to apply for Medicaid for insurance coverage for the baby. Educated to [employer] and help me grow. Children Services/Legal Issues: No reported history. Behavioral Health Issues: Mental Health History: MEY reports history of depression and anxiety though no formal diagnosis. No history of suicidal ideations, planning, or attempts. [place] depression screen completed this date was a score of 9. With higher scores involving anxiety related questions. MOB reports she usually talks to the FOB when she is feeling overwhelmed or stressed out. Substance Use History: MOB endorses history of marijuana usage, but that stopped during . Last reported use was in the first trimester. Denies any other drug usage. Denies denies alcohol use or abuse issues. No tobacco use reported. Family History: Biological family history not discussed. MOB does endorse that NICOLA has used marijuana before. Drug Screens: Maternal drug screen positive in the first trimester on 11/23/2019 for marijuana. Negative retesting on 05/20/2020, 05/23/2020, and 05/28/2020. 's urine drug screen is negative and meconium is pending. Family/Social Stressors: No reported stressors other than an unexpected , though accepted. Support Systems: MOB reports the FOB is a good support person. Additional supports include the MOB family who lives local. Depression/Shaken Baby/Safe Sleeping: Educated to said topics. Educated MOB and FOB that both mothers and fathers are at risk for depression and anxiety disorders, risk factors and importance of seeking out help with support. FOB reports he tends to have anxiety. ASSESSMENT: Met with the MOB and FOB in the room together, and then privately with the MOB. Both parents engaged in conversation, and more appropriate. FOB presented as supportive of the MOB. Parents report to have needed supplies, as well as enough support from family and friends if needed. FOB plans to be off of work through the weekend but can take off more work if needed next week. FOB held the baby throughout the social work visit, and then handed baby off when the FOB left the room. Both parents were observed to have handled the baby appropriately and gently. No voiced concerns by nursing staff regarding parent-child interactions or bonding. During private conversation with the MOB addressed depression screening, substance use, and domestic violence. MOB reports to feel safe at home situation, expresses understanding of risk for depression and agrees to seek out help and support if symptoms worsen or become distressing at any time. MOB reports she quit using marijuana, and has no intent to return back to this. Educated MOB to recommendation of not using marijuana while breast-feeding. MOB expressed understanding. Provided a [employer] resource list, information on [employer], a Medicaid application, and mood and anxiety disorder packet. Safe Plan of Care for related to substance use: MOB plans to continue abstinence of substances. No substance use in front of the baby or any person caring for baby after using. PLAN: MOB and baby to home with resources provided for [facility], including resources on mood and anxiety disorders. Will monitor for meconium drug screen results to determine need for additional referrals. No other services requested or indicated. -CHELSEA Bella, SHA *Information documented in this assessment generated with XMLAWation System*
--- NOTE | 2020-06-04 19:24 | NURSING ---
follow up phone call complete. Patient and baby doing well
== END 2020-05-31 13:55 | disposition home or self-care (01) | DRG 787 ==
LOC: WPOUT 13:48 → WP 13:59
PROVIDERS: Advanced Practice Midwife; Obstetrics & Gynecology; Admitting Provider Obstetrics & Gynecology; Visit Provider Obstetrics & Gynecology
DX: O14.04 Mild to moderate pre-eclampsia, complicating childbirth (principal); D62 Acute posthemorrhagic anemia; O76 Abnormality in fetal heart rate and rhythm complicating labor and delivery; O69.81X0 Labor and delivery complicated by cord around neck, without compression, not applicable or unspecified; Z3A.37 37 weeks gestation of pregnancy; Z37.0 Single live birth; O72.2 Delayed and secondary postpartum hemorrhage; O90.81 Anemia of the puerperium
CPT/HCPCS: 59025; 59050; 80053; 80307; 82565; 82570; 84156; 84450; 84460; 84550; 85027; 86850; 86900; 86901; 87426; 99218; J7120; A4216; G0378; J2405

== ENCOUNTER 2024-01-04 20:29 | Emergency (ER) | payer MEDICAID, SELFPAY ==
[2024-01-04 20:30] VITALS: BP 134/83; PULSE 124; RESP 18; TEMP 36.8; O2SAT 98
[2024-01-04 21:30] VITALS: BP 108/61
[2024-01-04] MEDS: 0.9% Normal Saline (1000mL) 1,000 ML 999 ML IV (21:30)
[2024-01-04 21:37] LABS: Absolute Lymphocyte Count 3.71 X10^3/uL (0.83-4.51); Absolute Neutrophil Count 17.4 X10^3/uL (2.0-7.7); Basophil# 0.08 X10^3/uL; Basophil% 0.4 % (0-1); Eosinophils% 0.4 % (0-5); Hematocrit 36.9 % (37-47); Hemoglobin 12.2 g/dL (12.0-15.0); Lymphocyte # 3.71 X10^3/ul (0.83-4.51); Lymphocyte % 16.6 % (19-41); Mean Corp Hgb Conc 33.1 g/dL (32-36); Mean Corpuscular Hgb 26.9 pg (27.0-32.0); Mean Corpuscular Volume 81.5 fL (81-99); Mean Platelet Vol. 9.6 fl (6.2-12.0); Monocyte# 0.92 X10^3/uL; Monocyte% 4.1 % (0-10); NRBC Flagged by Analyzer 0 % (0-5); Neutrophil # 17.35 X10^3/uL (2.7-7.7); Neutrophil % 77.6 % (47-70); Platelet Count 359 K/mm3 (150-450); RBC Distribution Width SD 41.1 fl (35.1-43.9); Red Blood Count 4.53 M/mm3 (4.2-5.4); White Blood Count 22.4 K/mm3 (4.4-11.0)
[2024-01-04 21:56] LABS: ALB/GLOB Ratio 0.8 RATIO (0.9-2.4); AST(SGOT) 13 U/L (15-37); Alanine Aminotransfer ALT/SGPT 21 U/L (13-56); Alkaline Phosphatase 64 U/L (45-117); Anion Gap 8 (5-15); BUN 11 mg/dL (7-18); BUN/Creat Ratio 15.5 RATIO (10-20); Calcium,Total 8.5 mg/dL (8.5-10.1); Chloride 102 mmol/L (98-107); Creatinine, Serum 0.71 mg/dL (0.55-1.02); EST Glomerular Filtration Rate 105 mL/min (>60); Est Glom Filt Rate - Afr Amer 127 mL/min (>60); Globulin 3.6 g/dL (2.2-4.2); Glucose 126 mg/dL (74-106); Potassium 3.2 mmol/L (3.5-5.1); Protein, Total 6.6 g/dL (6.4-8.2); Sodium Level 137 mmol/L (136-145)
[2024-01-04 22:00] VITALS: RESP 18; O2SAT 97
[2024-01-04 22:17] LABS: hCG Titer Quant., Serum 17856 mIU/mL (1-3)
[2024-01-04 23:00] VITALS: RESP 16; O2SAT 95
[2024-01-04 23:11] VITALS: BP 103/64; PULSE 79; RESP 18; TEMP 36.6; O2SAT 92
== END 2024-01-04 23:24 | disposition home or self-care (01) ==
PROVIDERS: Emergency Provider Emergency Medicine; Visit Provider Emergency Medicine
DX: O04.80 (Induced) termination of pregnancy with unspecified complications (principal); R10.2 Pelvic and perineal pain; Z3A.09 9 weeks gestation of pregnancy; F17.210 Nicotine dependence, cigarettes, uncomplicated; O99.331 Smoking (tobacco) complicating pregnancy, first trimester; O99.891 Other specified diseases and conditions complicating pregnancy
CPT/HCPCS: 76817; 80053; 84702; 85025; 86900; 86901; 96360; 96361; 99283; J7030; A4216